=== PATIENT | male | born 1970 | race African-American/Black ===

== ENCOUNTER 2022-11-26 10:04 | Outpatient (CLI) | payer OTHER ==
[~2022-11-26] VITALS: Ht 165 cm; Wt 111.0 kg
[2022-11-26] MEDS ORDERED: OMEP40CA6 PO (11:05)
[2022-11-26] MEDS ORDERED: AMLO-251 PO (11:05)
[2022-11-26] MEDS ORDERED: ATOR40TA70 PO (11:05)
[2022-11-26] MEDS ORDERED: CHLO25TA22 PO (11:05)
== END 2022-11-26 11:15 | disposition home or self-care (01) ==
LOC: PREOP 10:04
PROVIDERS: ATTEND Surgery
DX: Z01.818 Encounter for other preprocedural examination (principal)

== ENCOUNTER 2022-12-02 12:43 | Day surgery (SDC) | payer OTHER ==
[~2022-12-02] VITALS: Ht 165 cm; Wt 111.0 kg
[~2022-12-02 12:43] MED LIST: AMLO-251 PO; ATOR40TA70 PO; CHLO25TA22 PO; OMEP40CA6 PO
[2022-12-02] MEDS ORDERED: LIDOCAINE JELLY 2% 6 ML SYRINGE MM PRN (12:45)
[2022-12-02] MEDS ORDERED: LACTATED RINGERS 1,000 ML IV STA (12:45)
[2022-12-02] MEDS ORDERED: LACTATED RINGERS 1,000 ML IV ONE (12:56)
[2022-12-02] MEDS ORDERED: HURRICAINE EXT TUBE (BENZOCAINE) ONE (12:56)
[2022-12-02 13:06] VITALS: BP 155/98
--- NOTE | 2022-12-02 13:32 | Progress Note-Pre Operative ---
Pre-Operative Progress Note Date of Available H&P: Dec 02, 2022 Date H&P Reviewed: Dec 02, 2022 Time H&P Reviewed: 13:30 History & Physical: No changes noted Pre-Operative Diagnosis: GERD, screening o BRENTON DE LA TORRE MD Dec 02, 2022 13:32
--- NOTE | 2022-12-02 13:33 | Discharge Inst-Surgical ---
D/C Lap Instructions-WIL Follow Up Activity as tolerated High Fiber Diet 25g or more per day Avoid Alcohol, Caffeine, Spicy [place] and Acid foods. Drink 64 fluid oz or more of fluids per day. Symptoms to Report: Fever over 101 degree F, Nausea/Vomiting If any problems/questions: Contact your physician or go to Emergency Room BRENTON DE LA TORRE MD Dec 02, 2022 13:33
[2022-12-02] MEDS ORDERED: ONDANSETRON 4 MG ORAL DISSOLVE TABLET PO PRN (13:45)
[2022-12-02] MEDS ORDERED: ONDANSETRON INJECTION 4 MG/2 ML (SDV) IVP PRN (13:45)
[2022-12-02] MEDS ORDERED: LIDOCAINE JELLY 2% 6 ML SYRINGE ONE (14:12)
[2022-12-02] MEDS ORDERED: MIDAZOLAM INJ 2 MG/2 ML VIAL ONE (14:25)
[2022-12-02] MEDS ORDERED: PROPOFOL INJECTION 50 ML IV ONE ×2 (14:25→15:02)
[2022-12-02 15:05] VITALS: BP 82/51
[2022-12-02 15:10] VITALS: BP 72/48
[2022-12-02 15:15] VITALS: BP 71/45
[2022-12-02 15:20] VITALS: BP_SYST 155; BP_SYST 74; BP_DIAS 43; BP_DIAS 98
--- NOTE | 2022-12-02 15:20 | Anesthesia-General Post-Op ---
MAC Patient Condition Mental Status/LOC: Same as Preop Cardiovascular: Satisfactory Nausea/Vomiting: Absent Respiratory: Satisfactory Pain: Controlled Complications: Absent Post Op Complications Complications None Follow Up Care/Instructions Patient Instructions None needed. Anesthesiology Discharge Order Discharge Order Patient is doing well, no complaints, stable vital signs, no apparent adverse anesthesia problems. No complications reported per nursing. YAW SANDHU CRNA Dec 02, 2022 15:20
[2022-12-02] MEDS ORDERED: OMEP40CA6 PO (15:39)
[2022-12-02] MEDS ORDERED: SUCR1TAB36 PO (15:39)
[2022-12-02 16:25] VITALS: BP 74/43
--- NOTE | 2022-12-02 16:39 | Progress Note-Post Operative ---
Post-Operative Progess Note Surgeon (s)/Aircraft Delivery Checker (s) Surgeon BRENTON DE LA TORRE MD Aircraft Delivery Checker: none Pre-Operative Diagnosis GERD, screening colo Post-Operative Diagnosis reflux esophagitis(grade B-C) with mild distal esoph stricture, small HH(1.5cm), mod-severe gastritis with antral erosions. moderate sigmoid diverticulosis. Procedure & Operative Findings Date of Procedure 12/02/22 Procedure Performed/Findings EGD with bx and balloon dilatation. colonoscopy. Anesthesia Type mac Estimated Blood Loss Estimated blood loss (mL): minimal Specimens/Packing Specimens Removed ge jxn, stomach. BRENTON DE LA TORRE MD Dec 02, 2022 16:39
--- NOTE | 2022-12-03 01:00 | OPERATIVE REPORT ---
DATE OF SERVICE: 12/02/2022 PRIMARY CARE PHYISICIAN: Dr. Morgan. PREOPERATIVE DIAGNOSES: Gastroesophageal reflux disease, mild dysphagia, screening colonoscopy. POSTOPERATIVE DIAGNOSES: Reflux esophagitis, [place] between grade B and C with a mild distal esophageal stricture, small hiatal hernia, 1 cm in size, moderate gastritis with areas of antral erosions. No distal obstructions. Moderate sigmoid diverticulosis. PROCEDURE: EGD with biopsy and balloon dilatation. Colonoscopy. SURGEON: Brenton De La Torre MD ANESTHESIA: Monitored anesthesia care. ESTIMATED BLOOD LOSS: Minimal. FINDINGS: Same as postoperative diagnoses. DISPOSITION: The patient tolerated the procedure well. INDICATIONS: The patient is a 52-year-old male referred over to us for a screening colonoscopy as well as the issues encompassing gastroesophageal reflux disease. He has not had a colonoscopy up to this point in his life. He does not report any major issues with diarrhea, nor constipation as well as no red blood per rectum, nor any dark tarry stools. He also reports that he has had a significant history of reflux and has been taking [id number] Prilosec, which initially helped; however, became less effective over the years. He also does not report any family history of colon cancer. DESCRIPTION OF PROCEDURE: The patient was brought to the endoscopy suite and laid in the left lateral decubitus position. After adequate IV pain and sedative medications and monitored anesthesia care, the mouthpiece was applied. The endoscope was then placed in the mouth, visualizing the pharynx and hypopharyngeal region. Vocal cords, epiglottis and vallecula identified and appeared to be normal. The endoscope was then gently intubated into the esophageal opening and esophagus insufflated. The endoscope was then advanced through the first, second, third portions of esophagus at the level of the GE junction. A Reflux esophagitis, [place] between grade B and C identified as well as a mild distal esophageal stricture. A biopsy was taken with forceps with visualization of good hemostasis. The endoscope was then advanced in the stomach. The endoscope retroflexed, visualizing a small hiatal hernia approximately 1 cm in size. A biopsy was taken. There was a moderate severity gastritis, more towards the stomach antrum with 2 areas of mucosal erosions. One of these was biopsied with forceps with visualization of good hemostasis. The endoscope was then advanced through the pylorus and the first and second portion of the duodenum, which appeared normal with no distal obstructions. The balloon was then placed in the stomach and pulled back to the area of the stricture. We then proceeded with a graded dilatation in a stepwise fashion from 2, 4, then eventually 6 atmospheres of pressure with 60 seconds in between. Once we reached 6 atmospheres of pressure for 20 mm in luminal diameter, we had moderate resistance and left this in place for approximately 120 seconds. The balloon was then desufflated and removed with visualization of good hemostasis as well as no mucosal tears. The endoscope was then slowly withdrawn while taking a second look and suctioning of residual air with no additional findings. A digital rectal examination was performed. No significant hemorrhoids identified. Normal sphincter tone was felt and there were no palpable masses. Prostate gland was palpable and appeared normal. The endoscope was then intubated into the anus and the rectum gently insufflated. Then, the endoscope was advanced through the valves of Gay of the rectum with no polyps or any neoplasms identified. Through the sigmoid colon, a moderate sigmoid diverticulosis identified. The endoscope was then advanced through the remainder of the descending, transverse and ascending colon to the cecum, which were normal. There were no polyps or any neoplasms identified throughout the colon or rectum. The endoscope was then slowly withdrawn while taking a second look and suctioning of residual air with no additional findings. The patient tolerated the procedure well. For his reflux esophagitis, a mild distal esophageal stricture and hiatal hernia as well as gastritis, we will recommend the necessary lifestyle and dietary accommodation including small and more frequent meals, avoidance of eating at night as well as head elevation while lying supine. He also needs to avoid caffeinated beverages, spicy, greasy and acidic foods. We will also start him on omeprazole 40 mg daily as well as Carafate 1 gram q.i.d. for the next 2 weeks, then on a p.r.n. basis. If he does have worsening reflux or symptoms of dysphagia, we will have him follow up for a repeat EGD and potential dilatation. We will also recommend a high-fiber diet with incorporation of a fiber supplement, which should equal or exceed 30 grams daily and significant amounts of water to promote soft consistency stools on a daily basis. If he is asymptomatic from the standpoint, he may wait another 10 years for his next colonoscopy. Job ID: [id number] DocumentID: [id number] Dictated Date: 12/02/2022 15:15:01 Silo Painter Date: 12/03/2022 00:57:00 Dictated By: BRENTON DE LA TORRE MD MTDD
== END 2022-12-02 16:25 | disposition home or self-care (01) ==
LOC: ENDO 12:43
PROVIDERS: ATTEND Surgery
DX: Z12.11 Encounter for screening for malignant neoplasm of colon (principal); K21.00 Gastro-esophageal reflux disease with esophagitis, without bleeding; K44.9 Diaphragmatic hernia without obstruction or gangrene; K29.50 Unspecified chronic gastritis without bleeding; K25.9 Gastric ulcer, unspecified as acute or chronic, without hemorrhage or perforation; K22.2 Esophageal obstruction; K31.89 Other diseases of stomach and duodenum; K57.30 Diverticulosis of large intestine without perforation or abscess without bleeding; E66.9 Obesity, unspecified; Z68.41 Body mass index [BMI] 40.0-44.9, adult